=== PATIENT | male | born 1950 | race Hispanic/Latino ===

== ENCOUNTER 2021-11-07 08:47 | Outpatient (CLI) | payer MEDICARE, MEDICAID | END 2021-11-07 08:48 | disposition home or self-care (01) | LOC: BICMAMMO 08:47 | PROVIDERS: ATTEND Student in an Organized Health Care Education/Training Program | DX: Z13.820 Encounter for screening for osteoporosis (principal); F17.210 Nicotine dependence, cigarettes, uncomplicated; M85.89 Other specified disorders of bone density and structure, multiple sites | CPT/HCPCS: 77080 ==